=== PATIENT | female | born 1995 | race Caucasian/White ===

== ENCOUNTER 2021-08-07 20:47 | Emergency (ER) | payer OTHER, SELFPAY ==
[2021-08-07 20:50] VITALS: BP 129/65; PULSE 99; RESP 18; TEMP 36.2; O2SAT 100
--- NOTE | 2021-08-07 21:44 | ED.GENADULT ---
HPI - General Adult General Chief complaint: Unspecified Stated complaint: ST Time Seen by Provider: 08/07/21 21:05 History of Present Illness HPI narrative: Patient is a 26-year-old woman who presents ER with sore throat. Ongoing over the last week. Worse with swallowing. Feels achy when she touches her throat. Occasionally is irritated by smoking cigarettes. No fevers or chills or sweats. No known trauma. Pain was not initially associated with eating. Related Data Home Medications Medication Instructions Recorded Confirmed trazodone 50 mg PO HS 08/07/21 Allergies Allergy/AdvReac Type Severity Reaction Status Date / Time topiramate [From Topamax] Allergy Anaphylaxis Verified 08/07/21 20:53 venlafaxine AdvReac Nausea and Verified 08/07/21 20:53 Vomiting Review of Systems Constitutional: Constitutional: Denies chills and Denies fever(s) ENT: Denies nasal congestion, Reports sore throat and Denies throat swelling Respiratory: Respiratory: Denies cough, Denies dyspnea and Denies wheezing Psychiatric: Psychiatric: Reports anxiety PMFSH Past Medical History Medical History (Updated 08/07/21 @ 22:57 by William Tang MD) Anxiety Surgical History Surgical History (Updated 08/07/21 @ 22:55 by William Tang MD) No pertinent past surgical history Social History Social History (Updated 08/07/21 @ 22:55 by William Tang MD) Smoking status: Current every day smoker Exam Narrative: GENERAL: Well-appearing, well-nourished, and in no acute distress. HEAD: Normocephalic, atraumatic. ENT: Mucous membranes moist. Normal-appearing posterior oropharynx without tonsillar hypertrophy or exudate. Uvula midline nonedematous. NECK: Supple. CHEST: Clear to auscultation. No respiratory distress. HEART: Regular rate and rhythm. Normal peripheral pulses. NEURO: Alert and oriented x3. Course Course Emergency Course: Patient informed of results. Feels better with Viscous Lidocaine. Negative strep. Discharge home. Vital Signs Vital signs: Vital Signs Temperature 97.1 F L 08/07/21 20:50 Pulse Rate 99 08/07/21 20:50 Respiratory Rate 18 08/07/21 20:50 Blood Pressure 129/65 08/07/21 20:50 Pulse Oximetry 100 08/07/21 20:50 Temperature 97.5 F L 08/07/21 21:58 Pulse Rate 90 08/07/21 21:58 Respiratory Rate 18 08/07/21 21:58 Blood Pressure 139/68 08/07/21 21:58 Pulse Oximetry 99 08/07/21 21:58 Medical Decision Making Vital Signs Vital Signs: Vital Signs Temperature 97.1 F L 08/07/21 20:50 Pulse Rate 99 08/07/21 20:50 Respiratory Rate 18 08/07/21 20:50 Blood Pressure 129/65 08/07/21 20:50 Pulse Oximetry 100 08/07/21 20:50 Temperature 97.5 F L 08/07/21 21:58 Pulse Rate 90 08/07/21 21:58 Respiratory Rate 18 08/07/21 21:58 Blood Pressure 139/68 08/07/21 21:58 Pulse Oximetry 99 08/07/21 21:58 Lab Data Labs: Strep Screen Presumptive Negative *(Reference Range: Negative)* Discharge Plan Discharge Clinical Impression: Acute sore throat, Anxiety Patient Disposition: Home, Self-Care Condition: Stable Instructions: Strep Throat (ED), Anxiety (ED) Additional Instructions: Return to the ER if you lose consciousness, you cannot keep down food or water, you have chest pain or shortness of breath, you have additional concerns. Prescriptions: No Action trazodone 50 mg Tablet 50 mg PO HS RF: 0 Follow-up/Referrals: UNKNOWN,DOCTOR [Primary Care Provider] - 1 Week
[2021-08-07 21:58] VITALS: BP 139/68; PULSE 90; RESP 18; TEMP 36.4; O2SAT 99
== END 2021-08-07 23:32 | disposition home or self-care (01) ==
PROVIDERS: Emergency Provider Emergency Medicine
DX: J02.9 Acute pharyngitis, unspecified (principal); F41.9 Anxiety disorder, unspecified; F17.210 Nicotine dependence, cigarettes, uncomplicated
CPT/HCPCS: 87081; 87880; 99283